=== PATIENT | female | born 2000 | race Caucasian/White ===

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

== ENCOUNTER 2021-10-04 18:22 | Emergency (ER) | payer OTHER, MEDICAID ==
[~2021-10-04] VITALS: Ht 165.1 cm; Wt 78.5 kg
[~2021-10-04 18:22] MED LIST changes: +AMOXICILLIN 50500 M1 PO; +NAPROSYN500 MG PO
[2021-10-04 19:42] LABS: URINE BILIRUBIN NEGATIVE (Negative); URINE BLOOD NEGATIVE (Negative); URINE CLARITY CLEAR; URINE COLOR YELLOW; URINE GLUCOSE-RANDOM NEGATIVE (Negative); URINE KETONES NEGATIVE (Negative); URINE LEUKOCYTES-REFLEX NEGATIVE (Negative); URINE NITRITE-REFLEX NEGATIVE (Negative); URINE PROTEIN NEGATIVE (Negative); URINE SPECIFIC GRAVITY >= 1.030 (1.005-1.030); URINE UROBILINOGEN 0.2 E.U./dl (0.2-1.0)
[2021-10-04 19:45] LABS: ABSOLUTE EOSINOPHILS 0.1 thou/uL (0.0-0.7); ABSOLUTE MONOCYTES 0.3 thou/uL (0.0-1.2); ABSOLUTE NEUTROPHILS 3.7 thou/uL (1.6-8.1); BASOPHILS 0.5 %; EOSINOPHILS 1.9 %; HEMATOCRIT 34.7 % (37.0-47.0); HEMOGLOBIN 11.1 gm/dL (12.0-15.0); LYMPHOCYTES 32.4 %; MCH 22.5 pg (26.0-34.0); MCV 70.4 fL (80.0-100.0); MPV 8.2 fl. (7.2-11.1); NUCLEATED RBCS 0 /100WBC; PLATELET COUNT* 244 thou/uL (150-400); POLYS 60.2 %; RBC 4.93 mil/uL (4.20-5.00); WBC 6.1 thou/uL (4.0-11.0)
[2021-10-04 19:50] LABS: CALCIUM 8.2 mg/dL (8.5-10.1); CREATININE 0.6 mg/dL (0.6-1.3); POTASSIUM 3.6 mmol/L (3.5-5.1)
[2021-10-04 19:54] LABS: ALBUMIN 3.4 g/dL (3.4-5.0); TOTAL BILIRUBIN 0.2 mg/dL (<0.1-1.0); TOTAL PROTEIN 7.1 g/dL (6.4-8.2)
[2021-10-04] MEDS ORDERED: MEDROLDOSEPACK PO ×2 (20:35→20:58)
[2021-10-04] MEDS ORDERED: HYDROCODON-ACE1 EAC7 PO ×2 (20:35→20:58)
[2021-10-04 21:13] LABS: ANISOCYTOSIS 1+; MICROCYTES 2+; OVALOCYTES Occasional; PLATELET ESTIMATE ADEQUATE
[2021-10-04 21:14] LABS: HYPOCHROMASIA Occasional
[2021-10-04 21:26] VITALS: BP 108/74
== END 2021-10-04 21:28 | disposition home or self-care (01) ==
LOC: M.ERS 18:22
PROVIDERS: Physician Assistant
DX: K52.9 Noninfective gastroenteritis and colitis, unspecified (principal); R19.7 Diarrhea, unspecified; Z90.49 Acquired absence of other specified parts of digestive tract; Z98.51 Tubal ligation status

== ENCOUNTER 2021-11-05 22:31 | Emergency (ER) | payer OTHER, MEDICAID ==
[~2021-11-05] VITALS: Ht 165.1 cm; Wt 76.2 kg
[~2021-11-05 22:31] MED LIST changes: +HYDROCODON-ACE1 EAC7 PO; +MEDROLDOSEPACK PO
[2021-11-05 23:02] LABS: URINE BILIRUBIN NEGATIVE (Negative); URINE BLOOD NEGATIVE (Negative); URINE CLARITY CLEAR; URINE COLOR YELLOW; URINE GLUCOSE-RANDOM NEGATIVE (Negative); URINE KETONES NEGATIVE (Negative); URINE LEUKOCYTES-REFLEX NEGATIVE (Negative); URINE NITRITE-REFLEX NEGATIVE (Negative); URINE PROTEIN NEGATIVE (Negative); URINE SPECIFIC GRAVITY >= 1.030 (1.005-1.030); URINE UROBILINOGEN 0.2 E.U./dl (0.2-1.0)
[2021-11-05 23:22] LABS: ABSOLUTE NEUTROPHILS 3.4 thou/uL (1.6-8.1); HEMOGLOBIN 11.4 gm/dL (12.0-15.0); NUCLEATED RBCS 0 /100WBC
[2021-11-05 23:24] LABS: ABSOLUTE EOSINOPHILS 0.1 thou/uL (0.0-0.7); ABSOLUTE LYMPHOCYTES 2.1 thou/uL (0.8-5.3); ABSOLUTE MONOCYTES 0.4 thou/uL (0.0-1.2); BASOPHILS 0.4 %; EOSINOPHILS 2.2 %; HEMATOCRIT 35.8 % (37.0-47.0); LYMPHOCYTES 34.1 %; MCH 22.1 pg (26.0-34.0); MCHC 31.8 g/dL (28.0-37.0); MCV 69.7 fL (80.0-100.0); MONOCYTES 7.1 %; MPV 8.6 fl. (7.2-11.1); PLATELET COUNT* 238 thou/uL (150-400); POLYS 56.2 %; RBC 5.14 mil/uL (4.20-5.00); RDW-CV 16.5 % (10.5-14.5); WBC 6.1 thou/uL (4.0-11.0)
[2021-11-05 23:30] LABS: CALCIUM 8.9 mg/dL (8.5-10.1); CREATININE 0.7 mg/dL (0.6-1.3); POTASSIUM 3.7 mmol/L (3.5-5.1)
[2021-11-05 23:35] LABS: ALBUMIN 3.4 g/dL (3.4-5.0); TOTAL BILIRUBIN 0.1 mg/dL (<0.1-1.0); TOTAL PROTEIN 7.3 g/dL (6.4-8.2)
[2021-11-05] MEDS ORDERED: DICYCLOMINE HCL20 MG PO (23:55)
[2021-11-05] MEDS ORDERED: ZOFRAN ODT4 MG PO (23:55)
[2021-11-06 00:02] VITALS: BP 125/81
== END 2021-11-06 00:02 | disposition home or self-care (01) ==
LOC: M.ERS 22:31
PROVIDERS: Personal Emergency Response Attendant
DX: R11.2 Nausea with vomiting, unspecified (principal); R19.7 Diarrhea, unspecified; R10.84 Generalized abdominal pain; Z90.49 Acquired absence of other specified parts of digestive tract; Z98.51 Tubal ligation status